=== PATIENT | female | born 1960 | race Caucasian/White ===

== ENCOUNTER 2018-06-16 09:57 | Outpatient (REF) | payer BC, SELFPAY ==
[2018-06-16 22:06] LABS: Anion Gap 9.5 mmol/L (3-11); BUN 16 mg/dL (7-18); CO2 25.5 mmol/L (21.0-32.0); CREATININE 1.09 mg/dL (0.55-1.02); Calcium 9.7 mg/dL (8.5-10.1); Chloride 106 mmol/L (98-107); Estimated GFR 51.92 (mL/min/1.73m2); Glucose 98 mg/dL (70-100); Magnesium 1.9 mg/dL (1.8-2.4); Potassium 4.4 mmol/L (3.5-5.1); Sodium 141 mmol/L (136-145)
== END 2018-06-16 10:17 ==
LOC: NCHCN 09:57
PROVIDERS: Visit Provider Internal Medicine
DX: I10 Essential (primary) hypertension (principal); F32.9 Major depressive disorder, single episode, unspecified; I67.1 Cerebral aneurysm, nonruptured; R25.2 Cramp and spasm; G43.909 Migraine, unspecified, not intractable, without status migrainosus
CPT/HCPCS: 80048; 83735

== ENCOUNTER 2021-11-09 03:08 | Outpatient (CLI) | payer BC, SELFPAY ==
[2021-11-09 16:40] LABS: Abs Immature Grans 0.01 10^3/uL (0.0-0.06); Absolute Basophil Count 0.15 10^3/uL (0.0-0.2); Absolute Eosinophil Count 0.27 10^3/uL (0.0-0.7); Absolute Lymphocyte Count 2.98 10^3/uL (1.2-3.4); Absolute Monocyte Count 0.58 10^3/uL (0.1-0.8); Basophils % 1.9; Eosinophils % 3.3; HCT 28.6 % (36.0-46.0); HGB 8.6 g/dL (11.2-15.7); Immature Grans % 0.1; Lymphocytes % 36.8; MCH 23.5 pg (27.0-33.0); MCHC 30.1 % (32.0-36.0); MCV 78 fL (80-95); MPV 9.2 fL (8.0-11.0); Monocytes % 7.2; Neutrophils % 50.7; Platelet Count 475 10^3/uL (130-400); RBC 3.66 10^6/uL (3.93-5.22); RDW 15.5 % (11.7-14.6); RDW-SD 43.8 fL; WBC 8.09 10^3/uL (4.4-10.8)
[2021-11-09 17:08] LABS: Diff Comment RBC Morph Reviewed; Hypochromasia 1+; Microcytosis 1+
[2021-11-09 17:23] LABS: Iron 8 ug/dL (50-170); Total Iron Binding Capacity 421 ug/dL (250-450)
[2021-11-09 17:50] LABS: Ferritin 1 ng/mL (8-252); Vitamin B12 841 pg/mL (193-986)
== END 2021-11-09 03:09 | disposition home or self-care (01) ==
LOC: LBO 03:09
PROVIDERS: Visit Provider Internal Medicine Gastroenterology
DX: D64.9 Anemia, unspecified (principal); Z98.84 Bariatric surgery status
CPT/HCPCS: 36415; 82607; 82728; 83540; 83550; 85025

== ENCOUNTER 2021-11-22 02:03 | Outpatient (RCR) | payer BC, SELFPAY ==
[2021-11-22] MEDS: Normal Saline Flush 10 ML SYR IVP (13:58)
[2021-11-22] MEDS: IRON SUCROSE COMPLEX 200 MG in Normal Saline 100 ML 440 MG IVPB (14:05)
== END 2021-12-07 23:59 | disposition home or self-care (01) ==
LOC: INF 02:03
PROVIDERS: Visit Provider Nurse Practitioner Acute Care
DX: D50.9 Iron deficiency anemia, unspecified (principal)
CPT/HCPCS: 96365; J1756